=== PATIENT | male | born 1960 | race Caucasian/White ===

== ENCOUNTER 2018-10-30 08:02 | Day surgery (SDC) | payer OTHER ==
[~2018-10-30] VITALS: Ht 193 cm; Wt 81.7 kg
[~2018-10-30 08:02] MED LIST: BUPR100 PO; ERYT.5TO OD; Mobic15 MG PO; NAPR220 PO; OXYACE5T PO; QUET100 PO; RXERYTOPTH OP; RXOXYACE PO; VENL75ER PO
--- NOTE | 2018-10-30 08:25 | NUR ---
Ambulatory in Day Surgery History, Chart, Medications and Allergies reviewed before start of procedure.Lungs clear T/O to Auscultation. Patient confirms NPO status and agrees with scheduled surgery. Pre-Op teaching done. Pt verbalizes understanding. Patient States Post-Procedure ride home has been arranged.
--- NOTE | 2018-10-30 08:46 | NUR ---
BROUGHT BACK TO BEDSIDE. PT HAS NO COMPLAINTS.
--- NOTE | 2018-10-30 09:24 | NUR ---
DR MCNAMARA AT BEDSIDE TO TALK WITH PATIENT.
--- NOTE | 2018-10-30 09:26 | NUR ---
10/30/18 0926 Tati Avilez History, Chart, Medications and Allergies reviewed before start of procedure.PATIENT DETERMINED TO BE ASA APPROPRIATE FOR PROPOFOL SEDATION PRIOR TO START OF PROCEDURE BY .MONITOR INTACT WITH CONTINUOUS PULSE OXIMETRY AND INTERMITTENT BP.O2 VIA N/C INTACT THROUGHOUT SEDATION/PROCEDURE.3-LEAD EKG REVIEWED WITH PHYSICIAN PRIOR TO START OF PROCEDURE. PT TACHIPNIC T/O PROCEDURE WITH RR 30-40. COUGHING EXCESSIVLY. SPO2 MAINTAINS WITH JAW LIFT AND POM MASK AT 10L.
== END 2018-10-30 22:48 | disposition home or self-care (01) ==
LOC: ORSCMMR 08:02 → ORD 09:00 → ORSCMMR 09:00
PROVIDERS: Internal Medicine Gastroenterology
PROC: 0DB48ZX Excision of Esophagogastric Junction, Via Natural or Artificial Opening Endoscopic, Diagnostic (ICD-10-PCS; principal; 2018-10-30 09:00)
PROC: 0DB58ZX Excision of Esophagus, Via Natural or Artificial Opening Endoscopic, Diagnostic (ICD-10-PCS; principal; 2018-10-30 09:00)
PROC: 0D758ZZ Dilation of Esophagus, Via Natural or Artificial Opening Endoscopic (ICD-10-PCS; principal; 2018-10-30 09:00)
PROC: 0DB68ZX Excision of Stomach, Via Natural or Artificial Opening Endoscopic, Diagnostic (ICD-10-PCS; principal; 2018-10-30 09:00)
DX: R13.14 Dysphagia, pharyngoesophageal phase (principal); K22.2 Esophageal obstruction; K29.70 Gastritis, unspecified, without bleeding; K21.9 Gastro-esophageal reflux disease without esophagitis; J44.9 Chronic obstructive pulmonary disease, unspecified; K44.9 Diaphragmatic hernia without obstruction or gangrene; F32.9 Major depressive disorder, single episode, unspecified; F17.210 Nicotine dependence, cigarettes, uncomplicated; Z79.899 Other long term (current) drug therapy
CPT/HCPCS: 88305; 88342; C1726; J7120

== ENCOUNTER 2020-05-10 13:53 | Day surgery (SDC) | payer OTHER ==
[~2020-05-10] VITALS: Ht 188 cm; Wt 76.8 kg
[~2020-05-10 13:53] MED LIST changes: +Acetaminophen500 MG PO; +CENTRUM SILVER1 EAC2 PO; +IBUP800 PO; +Norco 5-325 Ta1 EACH PO; +OMEP20ER PO; +ONDA4ODT MM; +VENL150ER PO; +VENL75ER
--- NOTE | 2020-05-10 14:44 | NUR ---
Ambulatory in Day Surgery History, Chart, Medications and Allergies reviewed before start of procedure.Patient confirms NPO status and agrees with scheduled surgery. Patient reports completing Chlorhexadine shower X2 prior to admission to hospital.Surgical site prepped with 2% Chlorhexidine cloth wipe.
--- NOTE | 2020-05-10 16:58 | NUR ---
DRESSING CDI VSS
--- NOTE | 2020-05-10 16:58 | NUR ---
ASSUMED CARE OF PAITNET BROUGHT TO STEP AREA DENIES LIQUIDS AND STATES PAIN IS OKAY AND TOLERABLE
--- NOTE | 2020-05-10 17:27 | NUR ---
Discharge instructions reviewed with patient. Patient verbalizes understanding. Copy given to patient to take home. Patient States Post-Procedure ride home has been arranged. Discharged via wheelchair to private car for ride home.
--- NOTE | 2020-05-12 10:40 | NUR ---
05/12/20 1040 Neda Guo VERIFICATIONS: EDIT CHART.
== END 2020-05-10 23:21 | disposition home or self-care (01) ==
LOC: ORSCMMR 13:53
PROVIDERS: Orthopaedic Surgery
PROC: 0LM80ZZ Reattachment of Left Hand Tendon, Open Approach (ICD-10-PCS; principal; 2020-05-10 15:15)
DX: S61.213A Laceration without foreign body of left middle finger without damage to nail, initial encounter (principal); F17.210 Nicotine dependence, cigarettes, uncomplicated
CPT/HCPCS: A9270-GY; J0690; J2250; J2704; J3010; J7120

== ENCOUNTER 2023-02-04 07:55 | Day surgery (SDC) | payer OTHER ==
[2023-02-04] VITALS (28 sets, daily range): BP systolic 113–185; BP diastolic 71–135
[~2023-02-04] VITALS: Ht 188 cm; Wt 85.2 kg
[~2023-02-04 07:55] MED LIST changes: +Crestor40 MG PO; +FENO160 PO; +METO25ER PO; +WARF4 PO
--- NOTE | 2023-02-04 08:53 | NUR ---
02/04/23 0853 Tila Cornelius HISTORY, CHART, MEDICATIONS AND ALLERGIES REVIEWED BEFORE START OF PROCEDURE. PATIENT CONFIRMS NPO STATUS AND AGREES WITH SCHEDULED PROCEDURE. 3-LEAD EKG REVIEWED WITH PHYSICIAN PRIOR TO START OF PROCEDURE. MONITOR INTACT WITH CONTINUOUS PULSE OXIMETRY,CAPNOGRAPHY, 3-LEAD EKG, INTERMITTENT BP. SUPPLEMENTAL O2 TO BE TITRATED THROUGHOUT PROCEDURE TO MAINTAIN O2 SATURATION ABOVE 90%. PATIENT DETERMINED TO BE ASA APPROPRIATE FOR PROPOFOL SEDATION PRIOR TO START OF PROCEDURE BY DR. MCNAMARA. MALLAMPATI CLASS 1 AIRWAY: COMPLETE VISUALIZATION OF THE UVULA.
--- NOTE | 2023-02-04 10:09 | NUR ---
Patient up to Ambulate independently. Gait steady. Discharge instructions reviewed with patient. Patient verbalizes understanding. Copy given to patient to take home. Patient States Post-Procedure ride home has been arranged. Discharged via wheelchair to private car for ride home.
== END 2023-02-04 10:09 | disposition home or self-care (01) ==
LOC: ORSCMMR 07:55 → ORD 09:00 → ORSCMMR 10:09
PROVIDERS: Internal Medicine Gastroenterology
PROC: 0DB48ZX Excision of Esophagogastric Junction, Via Natural or Artificial Opening Endoscopic, Diagnostic (ICD-10-PCS; principal; 2023-02-04 09:00)
PROC: 0DBN8ZX Excision of Sigmoid Colon, Via Natural or Artificial Opening Endoscopic, Diagnostic (ICD-10-PCS; principal; 2023-02-04 09:00)
PROC: 0DBM8ZX Excision of Descending Colon, Via Natural or Artificial Opening Endoscopic, Diagnostic (ICD-10-PCS; principal; 2023-02-04 09:00)
DX: Z12.11 Encounter for screening for malignant neoplasm of colon (principal); K21.00 Gastro-esophageal reflux disease with esophagitis, without bleeding; K63.5 Polyp of colon; K22.2 Esophageal obstruction; K44.9 Diaphragmatic hernia without obstruction or gangrene; F17.210 Nicotine dependence, cigarettes, uncomplicated; J44.9 Chronic obstructive pulmonary disease, unspecified; I48.0 Paroxysmal atrial fibrillation; Z79.01 Long term (current) use of anticoagulants; Z79.899 Other long term (current) drug therapy
CPT/HCPCS: 88305; 88312; A9270; J2704; J7120